=== PATIENT | female | born 1950 | race Caucasian/White ===

== ENCOUNTER 2020-08-22 11:41 | Outpatient (CLI) | payer MEDICARE, BC ==
--- NOTE | 2020-08-22 13:50 | RAD ---
LUMBAR SPINE: 08/22/20 Two views. HISTORY: Left lower extremity pain. Back pain. No comparison. There is a grade I spondylolisthesis with posterior spondylolysis at the L3-4 level. There is loss of disc space at this L3-4 disc. The other lumbar vertebrae maintain height and alignment. The other di sc spaces are preserved. IMPRESSION: Grade I anterolisthesis with posterior spondylolysis at L3-4. Loss of disc space at L3-4. POS: AGW
== END 2020-08-22 11:42 | disposition home or self-care (01) ==
LOC: BICRAD 11:41
PROVIDERS: ATTEND Family Medicine
DX: M79.605 Pain in left leg (principal); M43.16 Spondylolisthesis, lumbar region
CPT/HCPCS: 72100

== ENCOUNTER 2020-09-07 04:49 | Inpatient (IN) | payer MEDICARE, BC ==
[2020-09-07] MEDS ORDERED: Diltiazem 125 MG/25 ML ONE (05:13)
[2020-09-07 05:18] LABS: #Basophils 0.1 thou/uL (0.0-0.2); #Eosinphils 0.4 thou/uL (0.0-0.7); #Lymphocytes 2.6 thou/uL (1.20-3.40); #Monocytes 0.4 thou/uL (0.11-0.59); #Neutrophils 3.7 thou/uL (1.40-6.50); %Basophils 1.4 % (0.0-1.0); %Eosinophils 5.9 % (0.0-10.0); %Monocytes 5.2 % (0.0-10.0); %Neutrophils 51.5 % (42.0-75.0); Hemoglobin 13.9 g/dL (12.0-16.0); Mean Corpuscular HGB CONC 33.5 g/dL (32.0-36.0); Mean Corpuscular Hemoglobin 31.4 pg (27.0-31.0); Mean Corpuscular Volume 93.8 fL (78.0-98.0); Mean Platelet Volume 6.7 fL (7.4-10.4); Platelet Count 312 thou/uL (130-400); RBC Distribution Width 11.8 % (11.5-14.5); Red Blood Cell (RBC) Count 4.42 mill/uL (4.20-5.40); White Blood Cell (WBC) Count 7.2 thou/uL (4.8-10.8)
[2020-09-07 05:40] LABS: ALT (SGPT) 26 U/L (8-55); AST (SGOT) 40 U/L (5-34); Alkaline Phosphatase 96 U/L (40-110); Anion Gap 14 mmol/L (10-20); BUN (Urea Nitrogen) 19 mg/dL (9.8-20.1); Bilirubin, Total 0.3 mg/dL (0.2-1.2); Calc. Creatinine Clearance 0 mL/min (70-130); Calcium 8.8 mg/dL (7.8-10.44); Carbon Dioxide 23 mmol/L (23-31); Chloride 109 mmol/L (98-107); Globulin 3.1 g/dL (2.4-3.5); Glucose 125 mg/dL (80-115); Potassium 3.8 mmol/L (3.5-5.1); Protein, Total 7.1 g/dL (5.8-8.1); Sodium 142 mmol/L (136-145)
[2020-09-07] MEDS ORDERED: Enoxaparin Sodium 100 MG/ML SYRINGE ONE (05:56)
[2020-09-07] MEDS ORDERED: Aspirin Chewable 81 MG TAB ONE (05:56)
[2020-09-07 06:03] LABS: CKMB 2.5 ng/mL (0-6.6)
[2020-09-07] MEDS ORDERED: Metoprolol Tartrate 5 MG/5 ML VIAL ONE (06:53)
[2020-09-07 07:18] LABS: Bilirubin Negative (Negative); Blood, Urine Negative (Negative); Clarity Clear (Clear); Glucose, Urine (Dipstick) Normal (Negative); Ketone, Urine Negative (Negative); Leukocyte Negative Leu/uL (Negative); Nitrite Negative (Negative); Protein, Urine (Dipstick) Negative (Neg-Trace); Specific Gravity, Urine 1.007 (1.002-1.036); Urobilinogen Normal mg/dL (Less than 2); pH, Urine 7.5 (5.0-9.0)
[2020-09-07] MEDS ORDERED: Loratadine 10 MG TAB PO PRN (07:34)
[2020-09-07] MEDS ORDERED: HYDROcodone/Acetaminophen 5/325 mg Tablet PO PRN (07:34)
[2020-09-07] MEDS ORDERED: Bisacodyl 10 MG SUPP PR PRN (07:34)
[2020-09-07] MEDS ORDERED: Zolpidem Tartrate 5 MG TAB PO PRN (07:34)
[2020-09-07] MEDS ORDERED: Sodium Chloride 0.65% Nasal 44 ML BOT EA NARE PRN (07:34)
[2020-09-07] MEDS ORDERED: Cepastat Lozenges 1 LOZ PO PRN (07:34)
[2020-09-07] MEDS ORDERED: Ondansetron PF 4 MG/2 ML Vial IVP PRN (07:34)
[2020-09-07] MEDS ORDERED: Senokot S 8.6-50 MG TAB PO PRN (07:34)
[2020-09-07] MEDS ORDERED: Loperamide HCl 2 MG CAP PO PRN (07:34)
[2020-09-07] MEDS ORDERED: Calcium Carbonate 500 MG ChewTAB PO PRN ×2 (07:34)
[2020-09-07] MEDS ORDERED: Ondansetron ODT 4 MG TAB PO PRN (07:34)
[2020-09-07] MEDS ORDERED: Acetaminophen 325 MG TAB PO PRN (07:34)
[2020-09-07] MEDS ORDERED: Labetalol HCl 100 MG/20 ML VIAL SLOW IVP PRN (07:34)
[2020-09-07] MEDS ORDERED: Diltiazem 125 MG in Sodium Chloride 0.9% 100 ML IVPB SCH (07:45)
[2020-09-07] MEDS: Dextrose 5 % And 0.9 % NaCl 1,000 ML IV SCH ×2 (07:45→17:28)
--- NOTE | 2020-09-07 07:46 | PDOC.HHP ---
Hospitalist HPI Palpitation History of Present Illness: 69-year-old female with a past medical history of hypothyroidism and breast c ancer who came to emergency room for evaluation of palpitation, patient has seasonal allergy and she took Benadryl before going to bed, subsequently patient was having difficulty sleeping, around 10 PM last night she was experiencing palpitation, she was monitoring her vitals and her pulse remains above 140 and it did not improve spontaneously, patient was also experiencing palpitation and mild dizziness, she called paramedics, EMS did EKG and she was found with a narrow complex tachycardia with a heart rate around 200, there was suspicious for SVT and patient was given adenosine and subsequently her heart rate improved to 110s to 120, subsequently patient converted into A. fib with RVR and Cardizem bolus was given by paramedics. Patient was brought to emergency room. In the emergency room patient was in A. fib with RVR, routine laboratory test showed slightly elevated troponin, patient was started on Cardizem drip, she was given Lovenox 1 mg/kg and aspirin. Patient was also given 1 dose of metoprolol. Patient does not have any previous history of A. fib. She denies any excessive caffeinated product, she denies any constipation diarrhea melena hematochezia. She does not have any fever or chills. ED Course: Paramedics gave patient adenosine 6 mg and 12 mg as well as Cardizem 20 mg IV bolus subsequently for A. fib with RVR In the emergency room patient is given Lopressor 5 mg IV push, Lovenox 1 mg/kg, aspirin 243 mg and Cardizem drip started VITAL SIGNS Anjelica Sep 07, 2020 04:53 GLORY Abdullahi Cory BP: 120/90, Pulse: 118, Time: 09/07/2020 04:53. VITAL SIGNS Anjelica Sep 07, 2020 05:03 GLORY Warren Cheylbi BP: 167/104, Pulse: 125, Resp: 20, Temp: 98.1, Pain: 0, O2 sat: 97, Time: 09/07/2020 05:03. VITAL SIGNS Anjelica Sep 07, 2020 05:30 GLORY Warren Cheylbi BP: 135/105, Pulse: 120, Resp: 16, Pain: 0, O2 sat: 95 on (Room Air), Time: 09/07/2020 05:30. VITAL SIGNS [facility] Sep 07, 2020 05:45 Gengo, RN, Cheylbi BP: 133/100, Pulse: 122, Resp: 16, Pain: 0, O2 sat: 95 on (Room Air), Time: 09/07/2020 05:45. VITAL SIGNS [facility] Sep 07, 2020 06:00 Gengo, RN, Cheylbi BP: 145/104, Pulse: 122, Resp: 18, Pain: 0, O2 sat: 97 on (Room Air), Time: 09/07/2020 06:00. VITAL SIGNS [facility] Sep 07, 2020 06:15 Gengo, RN, Cheylbi BP: 138/98, Pulse: 121, Resp: 20, Pain: 0, O2 sat: 95 on (Room Air), Time: 09/07/2020 06:15. VITAL SIGNS [facility] Sep 07, 2020 06:30 Gengo, RN, Cheylbi BP: 144/96, Pulse: 121, Resp: 16, Pain: 0, O2 sat: 96 on (Room Air), Time: 09/07/2020 06:30. VITAL SIGNS [facility] Sep 07, 2020 06:45 Gengo, RN, Cheylbi BP: 136/101, Pulse: 121, Resp: 16, Pain: 0, O2 sat: 94 on (Room Air), Time: 09/07/2020 06:45. VITAL SIGNS [facility] Sep 07, 2020 06:54 Gengo, RN, Cheylbi BP: 141/92, Pulse: 123, Resp: 16, Pain: 0, O2 sat: 97 on (Room Air), Time: 09/07/2020 06:54. VITAL SIGNS [facility] Sep 07, 2020 07:00 Gengo, RN, Cheylbi BP: 133/95, Pulse: 121, Resp: 16, Temp: 97.9 (Oral), Pain: 0, O2 sat: 94 on (Room Air), Time: 09/07/2020 07:00. Allergies/Adverse Reactions: Allergy/AdvReac Type Severity Reaction Status Date / Time No Known Allergies Allergy Unverified 12/25/18 18:23 Home Medications: Medication Instructions Recorded Confirmed Type Letrozole [Femara] 2.5 mg PO DAILY 09/07/20 09/07/20 History Levothyroxine Sodium 50 mcg PO DAILY 09/07/20 09/07/20 History [Levothyroxine] Past History: Past medical history Hypothyroidism History of breast cancer Past surgical history Lumpectomy in 2016 Cholecystectomy Hysterectomy Past psychiatric history Reviewed and negative Social history Occasional alcohol, no smoking, Hospitalist HPI ROS Constitutional: denies: fever, chills, sweats, weakness, malaise, other Eyes: denies: pain, vision change, conjunctivae inflammation, eyelid inflammation, redness, other ENT: denies: ear pain, ear discharge, nose pain, nose discharge, nose congestion, mouth pain, mouth swelling, throat pain, throat swelling, other Respiratory: denies: cough, dry, shortness of breath, hemoptysis, SOB with excertion, pleuritic pain, sputum, wheezing, other Cardiovascular: reports: palpitations. denies: chest pain, orthopnea, paroxysmal noc. dyspnea, edema, light headedness, other Gastrointestinal: denies: nausea, vomiting, abdominal pain, diarrhea, constipation, melena, hematochezia, other Genitourinary: denies: dysuria, frequency, incontinence, hematuria, retention, other Musculoskeletal: denies: neck pain, shoulder pain, arm pain, back pain, hand pain, leg pain, foot pain, other Skin: denies: rash, lesions, albert, bruising, other Hospitalist Exam General Appearance: NAD, awake alert Eye: PERRL, anicteric sclera ENT: normocephalic atraumatic, no oropharyngeal lesions Neck: supple, symmetric, no JVD, no thyromegaly Heart: no murmur, no gallops, no rubs, irregular Respiratory: no wheezes, no rales, no ronchi Gastrointestinal: soft, non-tender, non-distended, normal bowel sounds Extremities: no cyanosis, no clubbing, no edema Skin: normal turgor, no lesions Neurological: no focal deficits Musculoskeletal: normal tone, normal strength Psychiatric: normal affect, normal behavior Hospitalist Results Result Diagrams: 09/07/20 05:08 09/07/20 05:08 Lab results: Laboratory Last Values WBC 7.2 thou/uL (4.8-10.8) 09/07/20 05:08 RBC 4.42 mill/uL (4.20-5.40) 09/07/20 05:08 Hgb 13.9 g/dL (12.0-16.0) 09/07/20 05:08 Hct 41.4 % (36.0-47.0) 09/07/20 05:08 MCV 93.8 fL (78.0-98.0) 09/07/20 05:08 MCH 31.4 pg (27.0-31.0) H 09/07/20 05:08 MCHC 33.5 g/dL (32.0-36.0) 09/07/20 05:08 RDW 11.8 % (11.5-14.5) 09/07/20 05:08 Plt Count 312 thou/uL (130-400) 09/07/20 05:08 MPV 6.7 fL (7.4-10.4) L 09/07/20 05:08 Neutrophils % 51.5 % (42.0-75.0) 09/07/20 05:08 Lymphocytes % 36.0 % (21.0-51.0) 09/07/20 05:08 Monocytes % 5.2 % (0.0-10.0) 09/07/20 05:08 Eosinophils % 5.9 % (0.0-10.0) 09/07/20 05:08 Basophils % 1.4 % (0.0-1.0) H 09/07/20 05:08 Neutrophils # 3.7 thou/uL (1.40-6.50) 09/07/20 05:08 Lymphocytes # 2.6 thou/uL (1.20-3.40) 09/07/20 05:08 Monocytes # 0.4 thou/uL (0.11-0.59) 09/07/20 05:08 Eosinophils # 0.4 thou/uL (0.0-0.7) 09/07/20 05:08 Basophils # 0.1 thou/uL (0.0-0.2) 09/07/20 05:08 D-Dimer 0.65 *mcg/mL (0.27-0.43) H 09/07/20 05:08 Sodium 142 mmol/L (136-145) 09/07/20 05:08 Potassium 3.8 mmol/L (3.5-5.1) 09/07/20 05:08 Chloride 109 mmol/L (98-107) H 09/07/20 05:08 Carbon Dioxide 23 mmol/L (23-31) 09/07/20 05:08 Anion Gap 14 mmol/L (10-20) 09/07/20 05:08 BUN 19 mg/dL (9.8-20.1) 09/07/20 05:08 Creatinine 0.94 mg/dL (0.6-1.1) 09/07/20 05:08 Estimated GFR (MDRD) 59 09/07/20 05:08 Glucose 125 mg/dL (80-115) H 09/07/20 05:08 Calcium 8.8 mg/dL (7.8-10.44) 09/07/20 05:08 Total Bilirubin 0.3 mg/dL (0.2-1.2) 09/07/20 05:08 AST 40 U/L (5-34) H 09/07/20 05:08 ALT 26 U/L (8-55) 09/07/20 05:08 Alkaline Phosphatase 96 U/L (40-110) 09/07/20 05:08 CK-MB (CK-2) 2.5 ng/mL (0-6.6) 09/07/20 05:08 Troponin I 0.060 ng/mL (< 0.028) H 09/07/20 05:08 B-Natriuretic Peptide 85.8 pg/mL (0-100) 09/07/20 05:08 Serum Total Protein 7.1 g/dL (5.8-8.1) 09/07/20 05:08 Albumin 4.0 g/dL (3.4-4.8) 09/07/20 05:08 Globulin 3.1 g/dL (2.4-3.5) 09/07/20 05:08 Albumin/Globulin Ratio 1.3 g/dL (1.2-2.2) 09/07/20 05:08 TSH 3rd Generation 3.2266 uIU/mL (0.35-4.94) 09/07/20 05:08 Additional comment: EKG showed SVT and subsequent EKG showed A. fib with RVR Chest x-ray Status: image reviewed by me Additional Comments: Chest x-ray based on my review no acute cardiopulmonary process Hospitalist H&P A/P (1) Atrial fibrillation with rapid ventricular response Code(s): I48.91 - UNSPECIFIED ATRIAL FIBRILLATION Status: Acute (2) Type 2 myocardial infarction due to arrhythmia Code(s): I49.9 - CARDIAC ARRHYTHMIA, UNSPECIFIED; I21.A1 - MYOCARDIAL INFARCTION TYPE 2 Status: Acute (3) SVT (supraventricular tachycardia) Code(s): I47.1 - SUPRAVENTRICULAR TACHYCARDIA Status: Resolved (4) Hypothyroidism Code(s): E03.9 - HYPOTHYROIDISM, UNSPECIFIED Status: Chronic Qualifiers: Hypothyroidism type: unspecified Qualified Code(s): E03.9 - Hypothyroidism, unspecified (5) History of breast cancer Code(s): Z85.3 - PERSONAL HISTORY OF MALIGNANT NEOPLASM OF BREAST Status: Chronic (6) Dyslipidemia Code(s): E78.5 - HYPERLIPIDEMIA, UNSPECIFIED Status: Chronic Plan: Admission to monitored bed, telemetry floor Continue Cardize drip Cardiology consultation Aspirin 325 mg p.o. daily Lovenox 1 mg/kg subcu twice daily Serial troponin Echocardiography Telemetry monitoring Her home medication will be reconciled Lipid profile checked and will start Lipitor 20 mg nightly DVT prophylaxis patient is already on full dose of Lovenox therapy GI prophylaxis Pepcid 20 mg twice daily CODE STATUS patient is full code Disposition plan based on clinical course
[2020-09-07] MEDS ORDERED: Digoxin 0.5 MG/2 ML AMP ONE (08:01)
--- NOTE | 2020-09-07 08:08 | RAD ---
RADIOGRAPH CHEST 1 VIEW: DATE: 09/07/2020 HISTORY: 69-year-old female with tachycardia FINDINGS: The visualized lung romero are clear. The cardiomediastinal silhouette and hilar shadows are normal. The lateral costophrenic angles are sharp. There is no pneumothorax. IMPRESSION: Negative.
[2020-09-07 08:27] LABS: Cardiac Risk 3.1 (Less than 4.5)
[2020-09-07 08:30] LABS: SARS-CoV-2 PCR by NAA Not Detected (NotDetected)
[2020-09-07 08:32] LABS: Troponin I 0.187 ng/mL (< 0.028)
[2020-09-07] MEDS: Aspirin 325 MG TAB PO SCH (09:17)
--- NOTE | 2020-09-07 11:04 | CON ---
DATE OF CONSULTATION: 09/07/2020 HISTORY OF PRESENT ILLNESS AND HOSPITAL COURSE: Ms. Parekh is a pleasant 69-year-old female, who presented to the ER via EMS last night for palpitations and dizziness. She states that around 10 p.m., she went to bed after taking the Benadryl, and while trying to fall asleep, she began having a rapid heart rate. When she stood to go to check her blood pressure, she felt dizzy, but did not lose consciousness. She took her blood pressure and it was in the 130s to 140s over the 90s on her home monitor, and her pulse was noted to be above 140. When EMS arrived, her pulse was running in the 200s. EKG showed that she was in her narrow complex tachycardia. En route, she was given 6 mg of adenosine, and EKG then showed that she was in atrial fibrillation with rapid ventricular response. EMS then gave her a 20 mg push of Cardizem. In the ER, her EKG was noted to be atrial fibrillation with RVR. Since being in the ER, she has been on a Cardizem drip and received aspirin 243 mg, Lovenox 1 mcg/kg, Lopressor 5 mg IV push, and most recently this morning, digoxin loading dose of 0.5 mg at approximately 8 a.m. Her heart rate is still in the 120s while I was examining the patient. She states she has no cardiac history. She has never had a cardiac evaluation before. Her has atrial fibrillation and she is familiar with it. She denies fever, chills, nausea, vomiting, diarrhea, constipation, recent increase in thirst or urination, chest pain, shortness of breath, syncope, or swelling of her legs. She endorses a significant increase in her level of stress lately. PAST MEDICAL HISTORY: Hypothyroidism, breast cancer. PAST SURGICAL HISTORY: Lumpectomy, cholecystectomy, hysterectomy. SOCIAL HISTORY: Denies any tobacco or illicit drug use. Endorses occasional alcohol use, 1 ounce of Blackberry Binta in the evenings, 3 to 4 times a week. PHYSICAL EXAMINATION: GENERAL: In no acute distress. HEAD: Normocephalic, atraumatic. HEART: Regular rhythm. Tachycardic rate in the 120s. No significant murmurs, gallops, or rubs. Pulses full and equal throughout. Dorsalis pedis 2+. LUNGS: Clear to auscultation bilaterally. ABDOMEN: Soft, nontender. Bowel sounds present. NEURO: A and O x3. No focal deficits. LABORATORY DATA: Troponin 0.060, CK-MB 25. TSH 3.22. BNP 85. D-dimer 0.65. CBC and CMP relatively unremarkable. Chest x-ray, no acute cardiopulmonary processes. ASSESSMENT: 1. Acute arrhythmia. The patient originally presented with supraventricular tachycardia. After receiving adenosine, she converted to atrial fibrillation with RVR. On exam at approximately 9:30, her heart rate seemed regular. A repeat 12-lead EKG was ordered. She is status post Cardizem, beta mariann, and now loading dose of digoxin. If this fails to control her rate, we will consult EP for further management. Continue anticoagulation with Lovenox at 1 mcg/kg b.i.d. Echo ordered and pending. 2. Hypothyroidism. Continue home medication, levothyroxine 50 mcg. 3. History of breast cancer. Continue Femara (letrozole) 2.5 mg daily. Job ID: [id number] [facility]
[2020-09-07] MEDS ORDERED: Amiodarone 450 MG in Dextrose 5% in Water 250 ML IVPB SCH (12:30)
[2020-09-07 12:50] LABS: Troponin I 0.211 ng/mL (< 0.028)
[2020-09-07] MEDS: Famotidine 20 MG TAB PO SCH ×2 (13:59→20:42)
[2020-09-07 18:47] VITALS: BMI 42.0
[2020-09-07] MEDS: Enoxaparin Sodium 100 MG/ML SYRINGE SC SCH (20:42)
[2020-09-07] MEDS: Atorvastatin Calcium 20 MG TAB PO SCH (20:42)
--- NOTE | 2020-09-08 01:40 | CON ---
DATE OF CONSULTATION: 09/07/2020 REASON FOR CONSULTATION: Atrial flutter. HISTORY OF PRESENT ILLNESS: Ms. Parekh is a pleasant 69-year-old white female with no prior cardiac history who has had palpitations for several years. She sees Dr. Lukas Pennington in clinic. Around 9 a.m. this morning, she developed acute onset of palpitations associated with feeling of tachycardia and lightheadedness. The lightheadedness was moderate in severity and without exacerbating or alleviating factors. She had no chest discomfort, dyspnea, or syncope. She was noted to have a narrow complex tachycardia at 200 beats per minute in the ambulance. She was given adenosine 6 mg and 12 mg. She converted to atrial fibrillation. She is physically converted to atrial flutter. I reviewed her EKGs and confirmed the diagnosis. She currently has atrial flutter with 2:1 conduction and is on intravenous Cardizem. Prior EKGs cannot exclude the possibility of atypical atrial flutter. There is mention of SVT in the ambulance, although I do not have records of these tracings. She is currently comfortable without complaints. Echocardiogram is pending. Troponin was 0.6. TSH is normal. PAST MEDICAL HISTORY: 1. Hypothyroidism. 2. Breast cancer. PAST SURGICAL HISTORY: 1. Lumpectomy in 2016. 2. Cholecystectomy. 3. Hysterectomy. FAMILY HISTORY: Unremarkable. SOCIAL HISTORY: . They live in [place]. Her is with her today. She has one drink nightly. She drinks one cup of coffee daily. She has never smoked. REVIEW OF SYSTEMS: 12-point review of systems negative. PHYSICAL EXAMINATION: GENERAL: Alert and oriented x4. No apparent distress. VITAL SIGNS: Afebrile. Blood pressure normal, heart rate 120, respiratory rate 12. HEENT: No lesions. Sclerae clear. SKIN: No lesions. CARDIOVASCULAR: Tachycardic, regular rhythm. No murmurs, gallops, or rubs. LUNGS: Clear to auscultation bilaterally. Normal respiratory effort. EXTREMITIES: No cyanosis, clubbing, or edema. LABORATORY: WBC 7.2, hemoglobin 13.9, platelets 312. Sodium 142, potassium 3.8, BUN 19, creatinine 0.9, glucose 125. IMPRESSION: 1. Typical atrial flutter. 2. Atrial fibrillation after adenosine. 3. Supraventricular tachycardia. RECOMMENDATIONS: We have discussed the risks, benefits, and alternatives of transesophageal echocardiogram and radiofrequency ablation tomorrow. These include, but are not limited to myocardial infarction, stroke, , vascular damage, need for emergent surgery, damage to cardiac structures, pericardial effusion, damage to oropharyngeal or esophageal structures, and allergic reaction. She voices understanding and is agreeable to proceed. We will continue Lovenox tonight and hold tomorrow morning. Job ID: [id number]
--- NOTE | 2020-09-08 06:14 | CON ---
DATE OF CONSULTATION: 09/07/2020 ADDENDUM: INDICATION FOR CONSULTATION: Tachycardia in a 69-year-old patient. For the history of present illness, family history, social history, review of systems, past medical history, and physical examination, please refer the notes already dictated by Dr. Carr. I have seen and we have discussed with the patient together. This is a 69-year-old female, who has actually been relatively healthy, routinely walks. Yesterday evening after lying down notes her heart rate was beating relatively fast. She checked her heart rate and it was in the 140s. EMS was called. She felt dizzy and lightheaded. When they arrived, heart rate was almost 200. She appeared to be in supraventricular tachycardia. She was given IV adenosine and the heart rate slowed down and appeared to be in atrial fibrillation. She was brought to the emergency room. She also by the EMT was given IV diltiazem. She still remained in atrial fibrillation. Since being here, her heart rate remained relatively fast. She was then given 0.5 of IV digoxin. She slowed down a little bit, but the heart rate is still in the one teens to 120s. When I saw the patient, I did do a carotid massage on the patient after listening to the carotids, there was no bruit noted and she did have what appeared to be a pause, but was having underlying P waves and appears to be that she has underlying atrial flutter. At this time, the heart rate still remains in the 120s. I will start her on IV amiodarone to see if we can control the rate. She may be able to be converted back to sinus rhythm since she feels relatively certain that this fast heart rate only started yesterday evening and she is well within the 24-hour period for having increased risk of embolic phenomenon. We will also obtain an echocardiogram for evaluation of left ventricular systolic function. We will ask for an EP consultation. She most likely will need to have an ablation of the atrial flutter. At this time, she has been given subcu Lovenox and she remains on IV diltiazem and we will start her on the IV amiodarone per protocol. At this time, she is comfortable. She denies any chest pain or shortness of breath. PHYSICAL EXAMINATION: Otherwise is unremarkable. CHEST: Clear to auscultation. CARDIOVASCULAR: Appeared to be regular and was tachycardic. Pulses are present. EXTREMITIES: Warm. NEUROLOGICAL: She is grossly intact. LABORATORY DATA: Please refer to the notes dictated by Dr. Carr. Thank you very much for the referral. We will also ask Electrophysiology to see her as if this is an underlying atrial flutter, the best recommendation would be for ablation of atrial flutter. Job ID: [id number]
--- NOTE | 2020-09-08 06:29 | CON ---
DATE OF CONSULTATION: ADDENDUM: Please refer to the notes dictated by Dr. Floridalma Carr, the resident on the patient's case. We were asked to see this 69-year-old female due to rapid heart rate which was difficult to control. She was seen in the emergency room, we visited with the patient together. She did have what appeared to be supraventricular tachycardia with a rapid heart rate. When I saw the lady, she appeared to be more regular, but was still tachycardic. After listening to the carotids, I did a carotid massage and appears that she did have an underlying atrial flutter and then returned back to her rapid heart rate again. She has been placed on IV diltiazem. We will start her on IV amiodarone and we will ask the shipwright to see her as most likely she will need to undergo ablation of the atrial flutter. As far as her physical examination, past medical history, laboratory data, social history, medications, please refer to the notes dictated by the resident, Dr. Carr. IMPRESSION: 1. Atrial tachycardias with arrhythmias including supraventricular tachycardia, atrial fibrillation, and then atrial flutter. She will be advised to undergo most likely an ablation of the atrial flutter and they can control her other arrhythmias if they arise again with medical management. 2. History of hypothyroidism. She will continue her home medications. 3. She has also had a history of breast cancer. We will continue on her Femara on a daily basis. Thank you very much for asking us to see this lady in consultation. We will be more than happy to continue to follow her with you. Job ID: [id number]
[2020-09-08] MEDS: Levothyroxine Sodium 50 MCG TAB PO SCH (07:22)
[2020-09-08 07:41] LABS: #Basophils 0.1 thou/uL (0.0-0.2); #Eosinphils 0.4 thou/uL (0.0-0.7); #Lymphocytes 2.4 thou/uL (1.20-3.40); #Monocytes 0.5 thou/uL (0.11-0.59); #Neutrophils 4.2 thou/uL (1.40-6.50); %Eosinophils 5.1 % (0.0-10.0); %Lymphocytes 31.5 % (21.0-51.0); %Monocytes 6.2 % (0.0-10.0); %Neutrophils 56.2 % (42.0-75.0); Hemoglobin 14.4 g/dL (12.0-16.0); Mean Corpuscular HGB CONC 33.3 g/dL (32.0-36.0); Mean Corpuscular Hemoglobin 31.7 pg (27.0-31.0); Mean Corpuscular Volume 95.2 fL (78.0-98.0); Mean Platelet Volume 6.7 fL (7.4-10.4); Platelet Count 281 thou/uL (130-400); RBC Distribution Width 11.7 % (11.5-14.5); Red Blood Cell (RBC) Count 4.56 mill/uL (4.20-5.40); White Blood Cell (WBC) Count 7.5 thou/uL (4.8-10.8)
[2020-09-08 08:05] LABS: Anion Gap 12 mmol/L (10-20); BUN (Urea Nitrogen) 11 mg/dL (9.8-20.1); Calc. Creatinine Clearance 114 mL/min (70-130); Calcium 8.6 mg/dL (7.8-10.44); Carbon Dioxide 22 mmol/L (23-31); Chloride 110 mmol/L (98-107); Glucose 135 mg/dL (80-115); Potassium 3.5 mmol/L (3.5-5.1); Sodium 140 mmol/L (136-145)
[2020-09-08] MEDS ORDERED: Heparin 10,000 UNITS/ 10 ML VIAL ONE (08:33)
[2020-09-08] MEDS ORDERED: Fentanyl 100 MCG/2 ML VIAL ONE (09:00)
[2020-09-08] MEDS ORDERED: Lidocaine 1% (PF) 30 ML VIAL ONE (09:29)
[2020-09-08] MEDS ORDERED: Glycopyrrolate 0.2 MG/ML 5 ML SYRINGE ONE (10:00)
[2020-09-08] MEDS ORDERED: Dexamethasone 20 MG/5 ML VIAL ONE (10:00)
[2020-09-08] MEDS ORDERED: Rocuronium Bromide 10 MG/ML (10ML VIAL) ONE (10:00)
[2020-09-08] MEDS ORDERED: Lidocaine 1% PF 5 ML VIAL ONE (10:00)
[2020-09-08] MEDS ORDERED: PROPOFOL 200 MG/20 ML VIAL ONE (10:00)
[2020-09-08] MEDS ORDERED: Metoclopramide HCl 10 MG/2 ML VIAL ONE (10:00)
[2020-09-08] MEDS ORDERED: PHENYLEPHRINE-NS 100 MCG/ML 10 ML SYRINGE ONE (10:00)
[2020-09-08] MEDS ORDERED: Ondansetron PF 4 MG/2 ML Vial ONE (10:00)
--- NOTE | 2020-09-08 11:42 | OP ---
DATE OF PROCEDURE: 09/08/2020 REFERRING TRACK LAYER HEAD: Lukas Pennington. PREOPERATIVE DIAGNOSES: 1. Typical atrial flutter. 2. Paroxysmal atrial fibrillation. POSTOPERATIVE DIAGNOSES: 1. Typical counter-clockwise right atrial flutter. 2. Paroxysmal atrial fibrillation. PROCEDURES PERFORMED: 1. Cavotricuspid isthmus ablation. 2. 3D mapping of arrhythmia. 3. Left atrial pacing and recording. PARKING ENFORCEMENT TECHNICIAN: None. ANESTHESIA: General endotracheal. SPECIMENS: None. ESTIMATED BLOOD LOSS: 10 mL. COMPLICATIONS: None. DESCRIPTION OF PROCEDURE: The risks, benefits, and alternatives were discussed prior to the procedure. The patient was brought electively to the electrophysiology suite. Risks, benefits, and alternatives including, but were not limited to myocardial infarction, stroke, , vascular damage requiring surgery, thrombosis, pericardial effusion, damage to cardiac structures requiring surgery, damage to oropharyngeal or esophageal structures and allergic reaction. The patient was agreeable to proceed. After intubation by Anesthesia, transesophageal echocardiogram was performed which showed mild left atrial enlargement and normal valvular structures with trace tricuspid regurgitation and ejection fraction 65%. Bilateral femoral areas were prepped and draped in a sterile fashion. Lidocaine was infiltrated in the bilateral femoral areas. Two long 7-Zimbabwean sheaths were placed in the left femoral vein using ultrasound guidance. An Agilis sheath was placed in the right femoral vein using ultrasound guidance. A decapolar catheter was placed in the coronary sinus. Left atrial pacing and recording was performed. A 20- pole catheter was placed in the lateral right atrium. 3D mapping was used to guide the ablation. The patient had right atrial flutter when evaluating the coronary sinus activation initially. The patient spontaneously converted to atrial fibrillation which required cardioversion at 200 joules synchronized. TactiCath SE D/F irrigated ablation catheter was then placed through the Agilis sheath. Cavotricuspid isthmus ablation was performed prior to the cardioversion. The patient had lateral to medial, medial to lateral block with conduction 167 milliseconds across the cavotricuspid isthmus that persisted 20 minutes after the last radiofrequency energy. There was no evidence of dual AV srinivasan pathways with single PACs. There was no delta wave when pacing the distal coronary sinus. AV Wenckebach equal 350 milliseconds. VA block was concentric and decremental with a VA block equal 550 milliseconds. Post radiofrequency ablation intervals: Sinus cycle length 1237 milliseconds, MD 202 milliseconds, QRS 97 milliseconds, QT 419 milliseconds, AH 121 milliseconds, HV 48 milliseconds. Sheaths were pulled nad 0 Ethibond suture was used for hemostais and removed in PACU. The patient tolerated the procedure well, was transferred to the recovery area in good condition. CONCLUSION: 1. Typical atrial flutter. 2. Paroxysmal atrial fibrillation. 3. Mildly elevated troponin. RECOMMENDATIONS: 1. Eliquis 5 mg p.o. b.i.d., first dose tonight. 2. Amiodarone 200 mg p.o. b.i.d. Consider change to flecainide 50 mg p.o. b.i.d. after ischemic evaluation as an outpatient. 3. Follow up with Dr. Pennington in 1 to 2 weeks for ischemic evaluation. 4. Follow up with LAEJANDRINA Graham of [facility] in approximately 2 weeks. 5. Okay to discharge home from a cardiac electrophysiology standpoint later today. 6. No lifting more than 10 pounds for 5 days. Job ID: [id number] [id number]
[2020-09-08] MEDS: Aspirin 325 MG TAB PO SCH (11:44)
[2020-09-08] MEDS: Enoxaparin Sodium 100 MG/ML SYRINGE SC SCH (11:46)
[2020-09-08] MEDS: Famotidine 20 MG TAB PO SCH ×2 (12:38→20:43)
--- NOTE | 2020-09-08 13:42 | PDOC.DS.DS ---
Provider Date of Admission: 09/07/20 06:37 Date of Discharge: 09/08/20 Admitting Provider: Villa Hamilton MD Consultations: Cardiology, Electrophysiology Primary Care Physician: Keyana Haji MD Course Hospital Course: 69-year-old female with a past medical history of hypothyroidism and breast cancer who came to emergency room for evaluation of palpitation, patient has seasonal allergy and she took Benadryl before going to bed, subsequently patient was having difficulty sleeping, around 10 PM last night she was experiencing palpitation, she was monitoring her vitals and her pulse remains above 140 and it did not improve spontaneously, patient was also experiencing palpitation and mild dizziness, she called paramedics, EMS did EKG and she was found with a narrow complex tachycardia with a heart rate around 200, there was suspicious for SVT and patient was given adenosine and subsequently her heart rate improved to 110s to 120, subsequently patient converted into A. fib with RVR and Cardizem bolus was given by paramedics. Patient was brought to emergency room. In the emergency room patient was in A. fib with RVR, routine laboratory test showed slightly elevated troponin, patient was started on Cardizem drip, she was given Lovenox 1 mg/kg and aspirin. Patient was also given 1 dose of metoprolol. Patient does not have any previous history of A. fib. She denies any excessive caffeinated product, she denies any constipation diarrhea melena hematochezia. She does not have any fever or chills. After admission patient was treated with Cardizem drip, cardiology consulted, cardiology consulted edi programmer, patient underwent electrophysiology study, patient had care for cavotricuspid isthmus ablation, Nuclear Powerplant Mechanic Helper recommended to continue amiodarone 200 mg twice daily and consider changing to flecainide after ischemic evaluation as an outpatient basis patient will continue Eliquis 5 mg p.o. twice daily, patient will follow up with Dr. Pennington as an outpatient basis for ischemic evaluation and patient will follow up with electrophysiology, patient is also instructed to avoid lifting more than 10 pounds for 5 days, Resuscitation Status: 09/07/20 07:34 Resuscitation Status Routine Resuscitation Status: FULL: Full Resuscitation Lab Results: 09/08/20 07:31 09/08/20 07:31 Abnormal Lab Results - Last 48 hrs 09/07/20 05:08: Chloride 109 H, AST 40 H 09/07/20 05:08: Troponin I 0.060 H 09/07/20 05:08: MCH 31.4 H, MPV 6.7 L, Basophils % 1.4 H 09/07/20 05:08: D-Dimer 0.65 H 09/07/20 07:51: Troponin I 0.187 H 09/07/20 07:51: Cholesterol 211 H 09/07/20 12:14: Troponin I 0.211 H 09/08/20 07:31: Chloride 110 H, Carbon Dioxide 22 L 09/08/20 07:31: MCH 31.7 H, MPV 6.7 L Vitals: Vital Signs (12 hours) Temp Pulse Resp BP Pulse Ox 09/08/20 08:00 98.1 F 99 21 H 144/79 H 99 09/08/20 04:00 98.5 F 110 H 18 133/69 97 Weight Weight 237 lb 4.8 oz Physical Exam: The patient was seen and examined on the day of discharge. General Appearance: NAD, awake alert Eye: PERRL, anicteric sclera ENT: normocephalic atraumatic, no oropharyngeal lesions Neck: supple, symmetric, no JVD, no thyromegaly Respiratory: no wheezes, no rales, no ronchi Cardiovascular: RRR, no murmur, no gallops, no rubs Gastrointestinal: soft, non-tender, non-distended, normal bowel sounds Extremities: no cyanosis, no clubbing, no edema Skin: normal turgor, no lesions Neurological: no focal deficits Musculoskeletal: normal tone, normal strength PSYCH: normal affect, normal behavior Problem (1) Atrial fibrillation with rapid ventricular response Code(s): I48.91 - UNSPECIFIED ATRIAL FIBRILLATION Status: Acute (2) Type 2 myocardial infarction due to arrhythmia Code(s): I49.9 - CARDIAC ARRHYTHMIA, UNSPECIFIED; I21.A1 - MYOCARDIAL INFARCTION TYPE 2 Status: Acute (3) SVT (supraventricular tachycardia) Code(s): I47.1 - SUPRAVENTRICULAR TACHYCARDIA Status: Resolved (4) Hypothyroidism Code(s): E03.9 - HYPOTHYROIDISM, UNSPECIFIED Status: Chronic Qualifiers: Hypothyroidism type: unspecified Qualified Code(s): E03.9 - Hypothyroidism, unspecified (5) History of breast cancer Code(s): Z85.3 - PERSONAL HISTORY OF MALIGNANT NEOPLASM OF BREAST Status: Chronic (6) Dyslipidemia Code(s): E78.5 - HYPERLIPIDEMIA, UNSPECIFIED Status: Chronic Plan Prescriptions: Amiodarone [Cordarone] 200 mg PO BID #60 tab Apixaban [Eliquis] 5 mg PO BID #60 tab Atorvastatin Calcium [Lipitor] 20 mg PO HS #20 tab Home Medications: Medication Instructions Recorded Confirmed Type Letrozole [Femara] 2.5 mg PO DAILY 09/07/20 09/07/20 History Levothyroxine Sodium 50 mcg PO DAILY 09/07/20 09/07/20 History [Levothyroxine] Amiodarone [Cordarone] 200 mg PO BID #60 tab 09/08/20 Rx Apixaban [Eliquis] 5 mg PO BID #60 tab 09/08/20 Rx Atorvastatin Calcium [Lipitor] 20 mg PO HS #20 tab 09/08/20 Rx Allergies: No Known Allergies Allergy (Unverified 12/25/18 18:23) Activity:: Activity as Tolerated Nourishment:: Heart Healthy Diet Therapies:: Not Applicable Equipment/Supplies:: Not Applicable IV Therapy:: Not Applicable Referrals: Keyana Haji MD [Primary Care Provider] - 7 Days Marcelo Pennington MD [Active] - (as directed) Delroy Echavarria MD [Active] - (as directed ) Disposition: HOME Quality CORE MEASURES:: N/A
--- NOTE | 2020-09-08 15:34 | PDOC.HOSPP ---
- Subjective Encounter Date: 09/08/20 Encounter Time: 15:33 Subjective: Patient seen and examined. No new complaints. No overnight events - Objective Vital Signs & Weight: Vital Signs (12 hours) Temp Pulse Resp BP Pulse Ox 09/08/20 08:00 98.1 F 99 21 H 144/79 H 99 09/08/20 04:00 98.5 F 110 H 18 133/69 97 Weight Weight 237 lb 4.8 oz Result Diagrams: 09/08/20 07:31 09/08/20 07:31 Hospitalist ROS - Review of Systems ENT: denies: ear pain, ear discharge, nose pain, nose discharge, nose congestion, mouth pain, mouth swelling, throat pain, throat swelling, other Respiratory: denies: cough, dry, shortness of breath, hemoptysis, SOB with excertion, pleuritic pain, sputum, wheezing, other Cardiovascular: denies: chest pain, palpitations, orthopnea, paroxysmal noc. dyspnea, edema, light headedness, other Gastrointestinal: denies: nausea, vomiting, abdominal pain, diarrhea, constipation, melena, hematochezia, other Genitourinary: denies: dysuria, frequency, incontinence, hematuria, retention, other Musculoskeletal: denies: neck pain, shoulder pain, arm pain, back pain, hand pain, leg pain, foot pain, other - Medication Medications: Active Medications Generic Name Dose Route Start Last Admin Trade Name Freq PRN Reason Stop Dose Admin Atorvastatin Calcium 20 mg 09/07/20 21:00 09/07/20 20:42 Atorvastatin Calcium 20 Mg Tab PO 20 mg HS ALICIA Administration Famotidine 20 mg 09/07/20 09:00 09/08/20 12:38 Famotidine 20 Mg Tab PO Not Given BID [facility] Levothyroxine Sodium 50 mcg 09/08/20 06:00 09/08/20 07:22 Levothyroxine Sodium 50 Mcg Tab PO Not Given 0600 [facility] Hospitalist Exam Vitals: Vital Signs (12 hours) Temp Pulse Resp BP Pulse Ox 09/08/20 08:00 98.1 F 99 21 H 144/79 H 99 09/08/20 04:00 98.5 F 110 H 18 133/69 97 Weight Weight 237 lb 4.8 oz General Appearance: NAD, awake alert Eye: PERRL, anicteric sclera ENT: normocephalic atraumatic, no oropharyngeal lesions Neck: supple, symmetric, no JVD Heart: no murmur, no gallops, no rubs Respiratory: no wheezes, no rales, no ronchi Gastrointestinal: soft, non-tender, non-distended, normal bowel sounds Extremities: no clubbing, no edema Skin: normal turgor, no lesions Neurological: no focal deficits Musculoskeletal: normal tone, normal strength Psychiatric: normal affect, normal behavior Hosp A/P (1) Atrial fibrillation with rapid ventricular response Code(s): I48.91 - UNSPECIFIED ATRIAL FIBRILLATION Status: Acute (2) Type 2 myocardial infarction due to arrhythmia Code(s): I49.9 - CARDIAC ARRHYTHMIA, UNSPECIFIED; I21.A1 - MYOCARDIAL INFARCTION TYPE 2 Status: Acute (3) SVT (supraventricular tachycardia) Code(s): I47.1 - SUPRAVENTRICULAR TACHYCARDIA Status: Resolved (4) Hypothyroidism Code(s): E03.9 - HYPOTHYROIDISM, UNSPECIFIED Status: Chronic Qualifiers: Hypothyroidism type: unspecified Qualified Code(s): E03.9 - Hypothyroidism, unspecified (5) History of breast cancer Code(s): Z85.3 - PERSONAL HISTORY OF MALIGNANT NEOPLASM OF BREAST Status: Chronic (6) Dyslipidemia Code(s): E78.5 - HYPERLIPIDEMIA, UNSPECIFIED Status: Chronic - Plan old records reviewed/req, plan discussed w/ family s/p ablation EP recommendation noted continue Elliquis will consider discharge tomorrow medication reviewed and continue supportive care
--- NOTE | 2020-09-08 20:34 | EKG ---
Test Reason : Blood Pressure : / mmHG Vent. Rate : 121 BPM Atrial Rate : 121 BPM P-R Int : 170 ms QRS Dur : 084 ms QT Int : 290 ms P-R-T Axes : 000 -44 159 degrees QTc Int : 411 ms Sinus tachycardia Probable atrial flutter. Left axis deviation Possible Anterior infarct , age undetermined Abnormal ECG Confirmed by Eliza HANSEN ([id number]) on 09/08/2020 8:34:18 PM Referred By: MARA Confirmed By:Eliza HANSEN
--- NOTE | 2020-09-08 20:39 | EKG ---
Test Reason : POST STENT Blood Pressure : / mmHG Vent. Rate : 062 BPM Atrial Rate : 062 BPM P-R Int : 196 ms QRS Dur : 092 ms QT Int : 412 ms P-R-T Axes : 079 -15 030 degrees QTc Int : 418 ms Normal sinus rhythm Normal ECG When compared with ECG of 07-SEP-2020 09:46, (Unconfirmed) Vent. rate has decreased BY [address] no longer depressed in Inferior leads Nonspecific T wave abnormality no longer evident in Lateral leads Confirmed by Eliza HANSEN ([id number]) on 09/08/2020 8:38:59 PM Referred By: QUIQUE Confirmed By:Eliza HANSEN
[2020-09-08] MEDS: Atorvastatin Calcium 20 MG TAB PO SCH (20:44)
[2020-09-08] MEDS: Amiodarone 200 MG TAB PO SCH (20:44)
[2020-09-08] MEDS: Apixaban 5 MG TAB PO SCH (20:44)
[2020-09-09] MEDS: Levothyroxine Sodium 50 MCG TAB PO SCH (06:49)
[2020-09-09 08:01] VITALS: BP 140/65; TEMP 98.6
[2020-09-09] MEDS: Famotidine 20 MG TAB PO SCH (08:36)
[2020-09-09] MEDS: Apixaban 5 MG TAB PO SCH (08:37)
[2020-09-09] MEDS: Amiodarone 200 MG TAB PO SCH (08:37)
== END 2020-09-09 10:25 | disposition home or self-care (01) | DRG 273 ==
LOC: ERS 04:49 → ERHOLD 06:37 → 3SE 12:42
PROVIDERS: ADMIT Internal Medicine; ATTEND Internal Medicine
PROC: 02583ZZ Destruction of Conduction Mechanism, Percutaneous Approach (ICD-10-PCS; principal; 2020-09-08)
PROC: 02K83ZZ Map Conduction Mechanism, Percutaneous Approach (ICD-10-PCS; 2020-09-08)
DX: I47.1 Supraventricular tachycardia (principal); I21.A1 Myocardial infarction type 2; Z20.822 Contact with and (suspected) exposure to COVID-19; I48.3 Typical atrial flutter; E03.9 Hypothyroidism, unspecified; E78.5 Hyperlipidemia, unspecified; I48.0 Paroxysmal atrial fibrillation; Z85.3 Personal history of malignant neoplasm of breast; Z90.49 Acquired absence of other specified parts of digestive tract; Z90.710 Acquired absence of both cervix and uterus; Z79.890 Hormone replacement therapy; Z79.899 Other long term (current) drug therapy
CPT/HCPCS: 36415; 71045; 76942; 80048; 80053; 80061; 81003; 82553; 83880; 84443; 84484; 85025; 85379; 87635; 93005; 93010; 93312; 93613; 93653; 94760; 96365; 96366; 96372; 96374; 96375; C1731; C1894; C2630; J1100; J1160; J1644; J1650; J2001; J2405; J2704; J2765; J3010; J3490; U0003; U0005

== ENCOUNTER 2021-03-23 10:21 | Outpatient (CLI) | payer MEDICARE, BC | END 2021-03-23 10:22 | disposition home or self-care (01) | LOC: BICMAMMO 10:21 | PROVIDERS: ATTEND Family Medicine | DX: Z08 Encounter for follow-up examination after completed treatment for malignant neoplasm (principal); Z85.3 Personal history of malignant neoplasm of breast | CPT/HCPCS: 77066; G0279 ==

== ENCOUNTER 2022-04-09 10:52 | Outpatient (CLI) | payer MEDICARE, BC | END 2022-04-09 10:53 | disposition home or self-care (01) | LOC: BICMAMMO 10:52 | PROVIDERS: ATTEND Family Medicine | DX: Z12.31 Encounter for screening mammogram for malignant neoplasm of breast (principal); Z13.820 Encounter for screening for osteoporosis; M85.89 Other specified disorders of bone density and structure, multiple sites; Z78.0 Asymptomatic menopausal state; Z85.3 Personal history of malignant neoplasm of breast; Z98.890 Other specified postprocedural states | CPT/HCPCS: 77063; 77067; 77080 ==

== ENCOUNTER 2023-04-23 09:37 | Outpatient (CLI) | payer MEDICARE | END 2023-04-23 09:38 | disposition home or self-care (01) | LOC: BICMAMMO 09:37 | PROVIDERS: ATTEND Family Medicine | DX: Z12.31 Encounter for screening mammogram for malignant neoplasm of breast (principal); Z85.3 Personal history of malignant neoplasm of breast; Z98.890 Other specified postprocedural states | CPT/HCPCS: 77063; 77067 ==

== ENCOUNTER 2025-04-07 18:06 | Inpatient (IN) | payer MEDICARE ==
[2025-04-07] MEDS ORDERED: Acetaminophen 325 MG TAB PO PRN (20:12)
[2025-04-07] MEDS ORDERED: Ondansetron PF 4 MG/2 ML Vial IVP PRN (20:12)
[2025-04-07 20:39] VITALS: BMI 38.9
[2025-04-07 21:21] LABS: Magnesium 1.9 mg/dL (1.6-2.6)
[2025-04-07] MEDS: Apixaban 5 MG TAB PO SCH (21:46)
[2025-04-07] MEDS ORDERED: Calcium Carbonate 500 MG ChewTAB PO PRN (23:48)
[2025-04-08] MEDS: Diltiazem HCl/D5W 125 MG in Premix 1 BAG IVPB SCH (02:27)
[2025-04-08 05:09] LABS: #Basophils 0.06 10x3/uL (0.0-0.2); #Eosinophils 0.44 10x3/uL (0.0-0.7); #Monocytes 0.67 10x3/uL (0.11-0.59); #Neutrophils 4.29 10x3/uL (1.40-6.50); %Basophils 0.7 % (0.0-1.0); %Eosinophils 5.1 % (0.0-10.0); %Lymphocytes 35.9 % (21.0-51.0); %Monocytes 7.8 % (0.0-10.0); %Neutrophils 50.3 % (42.0-75.0); Hematocrit 42.3 % (36.0-47.0); Hemoglobin 13.7 g/dL (12.0-16.0); Mean Corpuscular Hemoglobin 30.0 pg (27.0-31.0); Mean Corpuscular Volume 92.6 fL (78.0-98.0); Platelet Count 275 10x3/uL (130-400); Red Blood Cell (RBC) Count 4.57 mill/uL (4.20-5.40); White Blood Cell (WBC) Count 8.55 10x3/uL (4.8-10.8)
[2025-04-08 05:21] LABS: Anion Gap 14 mmol/L (10-20); BUN (Urea Nitrogen) 16 mg/dL (9.8-20.1); Calc. Creatinine Clearance 85 mL/min (70-130); Calcium 9.0 mg/dL (7.8-10.44); Carbon Dioxide 22 mmol/L (23-31); Chloride 112 mmol/L (98-107); Glucose 110 mg/dL (83-110); Magnesium 2.0 mg/dL (1.6-2.6); Potassium 3.6 mmol/L (3.5-5.1); Sodium 144 mmol/L (136-145)
[2025-04-09 04:34] LABS: #Basophils 0.07 10x3/uL (0.0-0.2); #Eosinophils 0.43 10x3/uL (0.0-0.7); #Monocytes 0.62 10x3/uL (0.11-0.59); #Neutrophils 4.44 10x3/uL (1.40-6.50); %Basophils 0.8 % (0.0-1.0); %Eosinophils 5.0 % (0.0-10.0); %Lymphocytes 35.0 % (21.0-51.0); %Monocytes 7.2 % (0.0-10.0); %Neutrophils 51.7 % (42.0-75.0); Hematocrit 42.7 % (36.0-47.0); Hemoglobin 14.1 g/dL (12.0-16.0); Mean Corpuscular Hemoglobin 30.4 pg (27.0-31.0); Mean Corpuscular Volume 92.0 fL (78.0-98.0); Platelet Count 266 10x3/uL (130-400); Red Blood Cell (RBC) Count 4.64 mill/uL (4.20-5.40); White Blood Cell (WBC) Count 8.60 10x3/uL (4.8-10.8)
[2025-04-09 04:50] LABS: Anion Gap 14 mmol/L (10-20); BUN (Urea Nitrogen) 18 mg/dL (9.8-20.1); Calc. Creatinine Clearance 74 mL/min (70-130); Calcium 9.2 mg/dL (7.8-10.44); Carbon Dioxide 22 mmol/L (23-31); Chloride 110 mmol/L (98-107); Glucose 112 mg/dL (83-110); Magnesium 2.0 mg/dL (1.6-2.6); Potassium 3.8 mmol/L (3.5-5.1); Sodium 142 mmol/L (136-145)
[2025-04-09] MEDS ORDERED: PROPOFOL 0 ML ONE (07:55)
[2025-04-09] MEDS ORDERED: PROPOFOL 20 ML ONE (07:56)
[2025-04-09] MEDS ORDERED: GLYCOPYRROLATE/PF 0.2 MG/ML VIAL ONE (07:57)
[2025-04-09] MEDS: Potassium Bicarbonate/Cit Ac 20 MEQ TAB PO SCH (11:04)
[2025-04-09 15:17] VITALS: BP 115/67
[2025-04-09 15:48] VITALS: TEMP 98.1
[2025-04-10] MEDS ORDERED: PNEUMOC 20-VAL CONJ-DIP CRM/PF 0.5 ML SYRINGE IM ONE (23:00)
== END 2025-04-09 16:00 | disposition home or self-care (01) | DRG 310 ==
LOC: 2NO 19:36
PROVIDERS: ADMIT Family Medicine; ATTEND Student in an Organized Health Care Education/Training Program
PROC: 5A2204Z Restoration of Cardiac Rhythm, Single (ICD-10-PCS; principal; 2025-04-09)
DX: I48.91 Unspecified atrial fibrillation (principal); E03.9 Hypothyroidism, unspecified; Z85.3 Personal history of malignant neoplasm of breast; Z92.3 Personal history of irradiation; Z98.890 Other specified postprocedural states; Z90.49 Acquired absence of other specified parts of digestive tract; I48.92 Unspecified atrial flutter; Z79.899 Other long term (current) drug therapy; Z79.890 Hormone replacement therapy
CPT/HCPCS: 36415; 80048; 83735; 84443; 85025; 85730; 93005; J2704; J3490

== ENCOUNTER 2025-05-11 08:29 | Day surgery (SDC) | payer MEDICARE ==
[2025-05-10 11:29] VITALS: BMI 38.9
[2025-05-11] MEDS ORDERED: Heparin 10,000 UNITS/ 10 ML VIAL ONE (08:58)
[2025-05-11] MEDS ORDERED: Isoproterenol 0.2 MG/1 ML AMP ONE (08:58)
[2025-05-11] MEDS ORDERED: Sevoflurane 250 ML INH ANEST BOTTLE ONE (10:37)
[2025-05-11] MEDS ORDERED: Rocuronium Bromide 10 MG/ML (10ML VIAL) ONE (11:20)
[2025-05-11] MEDS ORDERED: PROPOFOL 200 MG/20 ML VIAL ONE (11:20)
[2025-05-11] MEDS ORDERED: SUGAMMADEX SODIUM 200 MG/2 ML VIAL ONE (13:08)
[2025-05-11] MEDS ORDERED: Ondansetron PF 4 MG/2 ML Vial ONE (13:13)
== END 2025-05-11 16:44 | disposition home or self-care (01) ==
LOC: SDC 08:29
PROVIDERS: ATTEND Internal Medicine Cardiovascular Disease
PROC: 4A023FZ Measurement of Cardiac Rhythm, Percutaneous Approach (ICD-10-PCS; principal; 2025-05-11)
PROC: 02583ZZ Destruction of Conduction Mechanism, Percutaneous Approach (ICD-10-PCS; 2025-05-11)
DX: I48.19 Other persistent atrial fibrillation (principal); I48.4 Atypical atrial flutter; E03.9 Hypothyroidism, unspecified; Z79.890 Hormone replacement therapy; Z79.01 Long term (current) use of anticoagulants; Z79.899 Other long term (current) drug therapy
CPT/HCPCS: 85347 ×2; 86850; 86900; 86901; 93623; 93656; 93657; C1730 ×2; C1733; C1759; C1760; C1766; C1769; C1893; C1894 ×2; J1100; J1644 ×2; J2405; J2720; J3010; 93005; 93010; J2704